=== PATIENT | male | born 1970 | race Caucasian/White ===

== ENCOUNTER 2023-06-28 03:14 | Emergency (ER) | payer SELFPAY ==
[~2023-06-28] VITALS: Ht 175.3 cm; Wt 68.0 kg
[2023-06-28] MEDS: METHYLPREDNISOLONE SOD SUCC 125MG/2ML (ACT-O-VIAL) IV STA (04:49)
[2023-06-28] MEDS: MAGNESIUM 2 G PREMIX 50 ML IV STA (04:49)
[2023-06-28 04:50] VITALS: PULSE 71; RESP 16; O2SAT 99
[2023-06-28] MEDS: ALBUTEROL (0.083%) 2.5MG/3ML NEB HHN STA (05:03)
[2023-06-28] MEDS: IPRATROPIUM BROMIDE (0.02%) 0.5MG/2.5ML NEB HHN STA (05:03)
[2023-06-28 08:44] VITALS: BP 111/63; PULSE 72; RESP 16; TEMP 97.7
[2023-06-28] MEDS: ALBUTEROL (0.083%) 2.5MG/3ML NEB HHN ONE (11:14)
== END 2023-06-28 11:17 | disposition left against medical advice (07) ==
LOC: ER 04:48 → EDBEDREQ 08:58 → EDBEDREQTM 08:58 → CANBEDREQ 11:16 → ER 11:17
DX: J45.909 Unspecified asthma, uncomplicated (principal); Z88.6 Allergy status to analgesic agent; Z88.8 Allergy status to other drugs, medicaments and biological substances
CPT/HCPCS: 71045; 94644; 96365; 96366; 96375; 99285; J3475; J2930; Z7610 ×7